=== PATIENT | female | born 1955 | race Caucasian/White ===

== ENCOUNTER 2018-05-11 22:15 | Observation (INO) ==
[2018-05-11 23:38] LABS: Baso % (Auto) 0.4 % (0.0-2.0); Eos # (Auto) 0.1 th/mm3 (0.0-0.4); Eos % (Auto) 1.3 % (0.0-4.0); Hematocrit 40.3 % (35.0-46.0); Hemoglobin 13.8 gm/dL (11.6-15.3); Lymph # (Auto) 3.4 th/mm3 (1.0-4.8); Lymph % (Auto) 51.4 % (9.0-44.0); Mean Corpuscular HGB Conc 34.2 % (32.0-36.0); Mean Corpuscular Hemoglobin 32.2 pg (27.0-34.0); Mean Corpuscular Volume 94.1 fL (80.0-100.0); Mean Platelet Volume 9.7 fL (7.0-11.0); Mono # (Auto) 0.8 th/mm3 (0.0-0.9); Mono % (Auto) 12.3 % (0.0-8.0); Neut # (Auto) 2.3 th/mm3 (1.8-7.7); Neut % (Auto) 34.6 % (16.0-70.0); Platelet Count 211 th/mm3 (150-450); Red Blood Count 4.29 mil/mm3 (4.00-5.30); Red Cell Distribution Width 12.2 % (11.6-17.2); White Blood Count 6.7 th/mm3 (4.0-11.0)
[2018-05-11 23:59] LABS: Alkaline Phosphatase 80 U/L (45-117); Total Protein 7.4 g/dL (6.4-8.2)
--- NOTE | 2018-05-11 23:59 | XR ---
EXAM DATE: 05/11/2018 11:34 PM EST AGE/SEX: 63 years / Female INDICATIONS: Shortness of breath with chest pain. CLINICAL DATA: This is the patient's initial encounter. Patient reports that signs and symptoms have been present for 1 day and indicates a pain score of 5/10. MEDICAL/SURGICAL HISTORY: Hypertension. None. COMPARISON: No prior exams available for comparison. FINDINGS: Portable AP view of the chest demonstrates a normal-sized cardiac silhouette. No effusion, consolidat ion, or pneumothorax is identified. The bones and soft tissues demonstrate no acute finding. EKG line s overlie the patient. CONCLUSION: No acute cardiopulmonary abnormality is identified. Electronically signed by: Nadeem Mcdaniel MD 05/11/2018 11:57 PM EST
[2018-05-12 00:04] LABS: Alanine Aminotransferase 109 U/L (10-53); Albumin 3.9 g/dL (3.4-5.0); Anion Gap 5 meq/L (5-15); Aspartate Aminotransferase 59 U/L (15-37); Blood Urea Nitrogen 18 mg/dL (7-18); Calcium 8.6 mg/dL (8.5-10.1); Carbon Dioxide 29.5 meq/L (21.0-32.0); Chloride 108 meq/L (98-107); Glomerular Filtration Rate 61 mL/min (>89); Glucose,Random 160 mg/dL (74-106); Potassium 3.9 meq/L (3.5-5.1); Sodium 142 meq/L (136-145)
[2018-05-12] MEDS ORDERED: Iohexol 350 MG/ML 100 ML Vial (for Cath Lab) IVCONTRAST ONE (01:07)
--- NOTE | 2018-05-12 01:31 | ED ---
HPI General Chief Complaint: Chest Pain Stated Complaint: Chest Pain/Resp complaint Time Seen by Provider: 05/11/18 22:50 Source: patient Limitations: no limitations History of Present Illness HPI narrative: 63-year-old female came to the emergency room with history of on and off shortness of breath for past 1 week. Today patient started to get chest pain which concerned her and she came to the emergency room to be evaluated. Patient describes the chest pain substernal radiating slightly to her left side of the chest. No aggravating or relieving symptoms identified. The pain is dull aching in quality. No other associated symptoms like diaphoresis, lightheadedness or syncopal episode. No history of coronary artery disease. Patient had a stress test a few years back that was negative. Vital signs were stable. Currently patient is chest pain-free. Related Data Home Medications Medication Instructions Recorded Confirmed aspirin 81 mg PO DAILY 05/11/18 05/11/18 levothyroxine 50 mcg PO DAILY 05/11/18 05/11/18 lisinopril 10 mg PO DAILY 05/11/18 05/11/18 temazepam 30 mg PO DAILY 05/11/18 05/11/18 Allergies Allergy/AdvReac Type Severity Reaction Status Date / Time acetaminophen Allergy Severe Vomiting Verified 05/11/18 22:26 oxycodone Allergy Severe Vomiting Verified 05/11/18 22:26 propoxyphene Allergy Severe Vomiting Verified 05/11/18 22:26 Sulfa (Sulfonamide Allergy Swelling Verified 05/11/18 22:26 Antibiotics) Review of Systems ROS: all other systems reviewed are negative [facility] Medical History Medical History HTN (hypertension) (Acute) Hx of hysterectomy (Acute) Thyroid disease (Acute) Surgical History Surgical History Hx of hand surgery (Acute) Hx of oral surgery (Acute) Social History Social History Substance History: No History of Abuse Second Hand Smoke Exposure: No Smoking Status: Former smoker How Often Do You Have a Drink Containing Alcohol: 2 to 3 times a week Recent Travel in [facility] within the Last 8 Weeks: No Recent Out of Country Travel within the Last 8 Weeks: No Immunization History Tetanus Immunization: Unsure Exam Narrative Exam Narrative: GENERAL: Awake, alert, mild distress SKIN: Focused skin assessment warm/dry. HEAD: Atraumatic. Normocephalic. EYES: Pupils equal and round. No scleral icterus. No injection or drainage. ENT: No nasal bleeding or discharge. Mucous membranes pink and moist. NECK: Trachea midline. No JVD. CARDIOVASCULAR: Regular rate and rhythm. No murmur appreciated. RESPIRATORY: No accessory muscle use. Clear to auscultation. Breath sounds equal bilaterally. GASTROINTESTINAL: Abdomen soft, non-tender, nondistended. Hepatic and splenic margins not palpable. MUSCULOSKELETAL: No obvious deformities. No clubbing. No cyanosis. No edema. NEUROLOGICAL: Awake and alert. No obvious cranial nerve deficits. Motor grossly within normal limits. Normal speech. PSYCHIATRIC: Appropriate mood and affect; insight and judgment normal. Course Initial Documented Vital Signs Temperature 98.1 F 05/11/18 22:24 Pulse Rate 62 05/11/18 22:24 Respiratory Rate 18 05/11/18 22:24 Blood Pressure 161/76 H 05/11/18 22:24 Pulse Oximetry 98 05/11/18 22:24 Last Documented Vital Signs Temperature 97.2 F L 05/13/18 08:00 Pulse Rate 68 05/13/18 08:00 Respiratory Rate 16 05/13/18 08:00 Blood Pressure 176/86 H 05/13/18 08:00 Pulse Oximetry 96 05/13/18 12:04 Medical Decision Making MDM Narrative Medical decision making narrative: 1 AM blood test results are back and within acceptable limits. Troponin and d-dimer is negative. Patient will be admitted to the chest pain center. Patient was told about the test results and the plan and she is acceptable. Medical Screen Exam Complete: Yes Emergency Medical Condition: Yes Lab Data Result diagrams: 05/11/18 23:15 05/11/18 23:15 Lab Results 05/11/18 05/11/18 05/11/18 Range/Units 23:15 23:15 23:57 WBC 6.7 (4.0-11.0) th/mm3 RBC 4.29 (4.00-5.30) mil/mm3 Hgb 13.8 (11.6-15.3) gm/dL Hct 40.3 (35.0-46.0) % MCV 94.1 (80.0-100.0) fL MCH 32.2 (27.0-34.0) pg MCHC 34.2 (32.0-36.0) % RDW 12.2 (11.6-17.2) % Plt Count 211 (150-450) th/mm3 MPV 9.7 (7.0-11.0) fL Neut % (Auto) 34.6 (16.0-70.0) % Lymph % (Auto) 51.4 H (9.0-44.0) % [place] % (Auto) 12.3 H (0.0-8.0) % Eos % (Auto) 1.3 (0.0-4.0) % Baso % (Auto) 0.4 (0.0-2.0) % Neut # (Auto) 2.3 (1.8-7.7) th/mm3 Lymph # (Auto) 3.4 (1.0-4.8) th/mm3 [place] # (Auto) 0.8 (0.0-0.9) th/mm3 Eos # (Auto) 0.1 (0.0-0.4) th/mm3 Baso # (Auto) 0.0 (0.0-0.2) th/mm3 WBC Differential . Differential Comment Auto diff final D-Dimer Quant (PE/DVT) 0.39 (0.00-0.50) mg/L FEU Sodium 142 (136-145) meq/L Potassium 3.9 (3.5-5.1) meq/L Chloride 108 H (98-107) meq/L Carbon Dioxide 29.5 (21.0-32.0) meq/L Anion Gap 5 (5-15) meq/L BUN 18 (7-18) mg/dL Creatinine 0.93 (0.50-1.00) mg/dL Estimated GFR 61 L (>89) mL/min Random Glucose 160 H (74-106) mg/dL Calcium 8.6 (8.5-10.1) mg/dL Total Bilirubin 0.5 (0.2-1.0) mg/dL AST 59 H (15-37) U/L ALT 109 H (10-53) U/L Alkaline Phosphatase 80 (45-117) U/L Total Creatine Kinase (26-192) U/L Troponin I Less than 0.02 L (0.02-0.05) ng/mL Total Protein 7.4 (6.4-8.2) g/dL Albumin 3.9 (3.4-5.0) g/dL 05/12/18 05/12/18 Range/Units 01:46 03:20 WBC (4.0-11.0) th/mm3 RBC (4.00-5.30) mil/mm3 Hgb (11.6-15.3) gm/dL Hct (35.0-46.0) % MCV (80.0-100.0) fL MCH (27.0-34.0) pg MCHC (32.0-36.0) % RDW (11.6-17.2) % Plt Count (150-450) th/mm3 MPV (7.0-11.0) fL Neut % (Auto) (16.0-70.0) % Lymph % (Auto) (9.0-44.0) % [place] % (Auto) (0.0-8.0) % Eos % (Auto) (0.0-4.0) % Baso % (Auto) (0.0-2.0) % Neut # (Auto) (1.8-7.7) th/mm3 Lymph # (Auto) (1.0-4.8) th/mm3 [place] # (Auto) (0.0-0.9) th/mm3 Eos # (Auto) (0.0-0.4) th/mm3 Baso # (Auto) (0.0-0.2) th/mm3 WBC Differential Differential Comment D-Dimer Quant (PE/DVT) (0.00-0.50) mg/L FEU Sodium (136-145) meq/L Potassium (3.5-5.1) meq/L Chloride (98-107) meq/L Carbon Dioxide (21.0-32.0) meq/L Anion Gap (5-15) meq/L BUN (7-18) mg/dL Creatinine (0.50-1.00) mg/dL Estimated GFR (>89) mL/min Random Glucose (74-106) mg/dL Calcium (8.5-10.1) mg/dL Total Bilirubin (0.2-1.0) mg/dL AST (15-37) U/L ALT (10-53) U/L Alkaline Phosphatase (45-117) U/L Total Creatine Kinase 66 57 (26-192) U/L Troponin I Less than 0.02 L Less than 0.02 L (0.02-0.05) ng/mL Total Protein (6.4-8.2) g/dL Albumin (3.4-5.0) g/dL Imaging Data Radiologist's impression: Chest X-Ray 05/11/18 23:06 CONCLUSION: No acute cardiopulmonary abnormality is identified. Myocardial Perfusion Scan Nuc Med 05/12/18 00:00 CONCLUSION: 1. Focal perfusion defect involving the cardiac apex at stress which demonstrates some reversibility at rest indicating LAD infarct with landry- infarct ischemia. Clinical correlation is recommended. ECG Data Attestation: I personally reviewed and interpreted this ECG as follows: Interpretation: Twelve-lead EKG was reviewed by me. Normal sinus rhythm, normal axis, nonspecific ST-T wave changes. Heart rate of 70 bpm. Discharge Plan Discharge Disposition Patient Disposition: 30 Still Patient Discharge Condition Condition: Stable Discharge Order Discharge Orders: Discharge Order (Routine); Ordered 05/13/18 Ordered By: Bj Donovan ED Use Only Admit Order (Routine); Ordered 05/12/18 Ordered By: Noreen Novoa Discharge Details Anticipated Discharge Date: 05/13/18 Physicians Team ED Provider: Noreen Novoa Attending Provider: Bj Donovan Other Providers: Bj Donovan ; Wing Graciela Caldwell Status ED Status: Left Department Discharge Information Discharge Date/Time: 05/12/18 02:30
[2018-05-12 03:07] LABS: Creatine Kinase 66 U/L (26-192)
[2018-05-12 04:49] LABS: Creatine Kinase 57 U/L (26-192)
--- NOTE | 2018-05-12 08:33 | P.HPCA ---
History of Present Illness Service: Chest pain center Primary Care Physician: Sheyla Cruz Chief Complaint: Dyspnea on exertion and chest pain History of Present Illness: Pleasant 63-year-old [email or web address] employee has noted some dyspnea on exertion over the last month or more. About a week ago she moved a mattress and some furniture and then subsequently began to notice some chest discomfort. This is difficult to describe but is somewhat of a dull ache or squeezing predominantly in the upper substernal area radiating more towards the left shoulder and lower left neck. When she feels this it is about a 5 out of 10 severity lasting for 30 seconds to a minute or so. There are no precipitating or relieving factors. She does note that it slightly pleuritic but has had no cough or other symptoms. She has a history of hypertension hypothyroid and has known elevated liver function tests followed by her primary care physician. She has no other significant complaints at this time. Review of Systems All other systems reviewed negative except as stated in HPI PMFSH - History History Provided By: Patient - Medical History Medical History: Medical History (Last Reviewed 05/12/18 @ 01:37 by Noreen Novoa MD) HTN (hypertension) Hx of hysterectomy Thyroid disease - Surgical History Surgical History: Surgical History (Last Reviewed 05/12/18 @ 01:37 by Noreen Novoa MD) Hx of hand surgery Hx of oral surgery - Tobacco History Second Hand Smoke Exposure: No Smoking Status: Former smoker - Alcohol History How Often Do You Have a Drink Containing Alcohol: 2 to 3 times a week - Substance Use History Substance History: No History of Abuse - Travel History Recent Travel in the [place] Within the Last 8 Weeks: No Recent Travel Out of the Country Within the Last 8 Weeks: No - Immunization History Tetanus Immunization: Unsure Medications and Allergies Active Medications: Active Medications Sodium Chloride (Ns Flush) 2 ml IV.FLUSH UNSCH PRN PRN Reason: FLUSH AFTER USING IV ACCESS Sodium Chloride (Ns Flush) 2 ml IV.FLUSH BID GARRY Sodium Chloride (Ns Flush) 2 ml IV.FLUSH PRN PRN PRN Reason: FLUSH AFTER USING IV ACCESS Allergies Allergy/AdvReac Type Severity Reaction Status Date / Time acetaminophen Allergy Severe Vomiting Verified 05/11/18 22:26 oxycodone Allergy Severe Vomiting Verified 05/11/18 22:26 propoxyphene Allergy Severe Vomiting Verified 05/11/18 22:26 Sulfa (Sulfonamide Allergy Swelling Verified 05/11/18 22:26 Antibiotics) Home Medications Medication Instructions Recorded Confirmed Type aspirin 81 mg PO DAILY 05/11/18 05/11/18 History levothyroxine 50 mcg PO DAILY 05/11/18 05/11/18 History lisinopril 10 mg PO DAILY 05/11/18 05/11/18 History temazepam 30 mg PO DAILY 05/11/18 05/11/18 History Exam Vital signs: Vital Signs 05/11/18 22:24 05/11/18 23:16 05/11/18 23:17 Temperature 98.1 F Pulse Rate 62 64 Respiratory Rate 18 Blood Pressure 161/76 H Pulse Oximetry 98 97 05/11/18 23:18 05/12/18 02:10 05/12/18 04:00 Temperature 98.1 F Pulse Rate 60 52 L 51 L Respiratory Rate 19 18 18 Blood Pressure 144/83 H 148/80 H 150/90 H Pulse Oximetry 98 100 98 05/12/18 08:12 Temperature 98.3 F Pulse Rate 98 H Respiratory Rate 18 Blood Pressure 159/92 H Pulse Oximetry 98 Intake & Output 05/11/18 05/12/18 05/12/18 18:59 06:59 18:59 Weight 165 kg Other: # Voids 2 Weight On Admission 74.843 kg Narrative: Well-nourished well-developed slightly obese lady in no acute distress resting comfortably Skin warm and dry Head normocephalic atraumatic hair normal distribution and texture Eyes PERRLA EOMI sclera clear Mouth mucous membranes moist and well papillated upper plate in place no lesions Neck supple no JVD masses nodes or bruits Chest clear to auscultation no rales wheezes or rhonchi and no significant tenderness noted Cardiovascular regular sinus rhythm no gallops rubs or murmurs Abdomen obese soft nontender no guarding or rebound no hepatosplenomegaly Extremities no clubbing cyanosis or edema pulses are intact Neurologic cranial nerves are intact upper and lower extremities demonstrate equal and strong strength Results 05/11/18 23:15 05/11/18 23:15 Cardiac Enzymes 05/11/18 05/12/18 05/12/18 Range/Units 23:15 01:46 03:20 AST 59 H (15-37) U/L Troponin I Less than 0.02 L Less than 0.02 L Less than 0.02 L (0.02-0.05) ng/mL CBC 05/11/18 Range/Units 23:15 WBC 6.7 (4.0-11.0) th/mm3 RBC 4.29 (4.00-5.30) mil/mm3 Hgb 13.8 (11.6-15.3) gm/dL Hct 40.3 (35.0-46.0) % Plt Count 211 (150-450) th/mm3 Neut # (Auto) 2.3 (1.8-7.7) th/mm3 Lymph # (Auto) 3.4 (1.0-4.8) th/mm3 [place] # (Auto) 0.8 (0.0-0.9) th/mm3 Eos # (Auto) 0.1 (0.0-0.4) th/mm3 Baso # (Auto) 0.0 (0.0-0.2) th/mm3 Comprehensive Metabolic Panel 05/11/18 Range/Units 23:15 Sodium 142 (136-145) meq/L Potassium 3.9 (3.5-5.1) meq/L Chloride 108 H (98-107) meq/L Carbon Dioxide 29.5 (21.0-32.0) meq/L BUN 18 (7-18) mg/dL Creatinine 0.93 (0.50-1.00) mg/dL Calcium 8.6 (8.5-10.1) mg/dL AST 59 H (15-37) U/L ALT 109 H (10-53) U/L Alkaline Phosphatase 80 (45-117) U/L Total Protein 7.4 (6.4-8.2) g/dL Albumin 3.9 (3.4-5.0) g/dL Intake and Output 05/11/18 05/12/18 05/12/18 22:59 06:59 14:59 Other: # Voids 2 Weight 74.843 kg 165 kg Weight On Admission 74.843 kg - Imaging and Cardiology Imaging: Impressions Chest X-Ray 05/11/18 23:06 CONCLUSION: No acute cardiopulmonary abnormality is identified. EKG interpretations - EKG EKG results cardiology: WNL Caprini VTE Risk Assessment Caprini VTE Risk Assessment: No/Low Risk (score <= 1) Caprini Risk Assessment Model: Point Value = 1 Point Value = 2 Point Value = 3 Point Value = 5 Age 41-60 Minor surgery BMI > 25 kg/m2 Swollen legs Varicose veins or History of unexplained or recurrent spontaneous Oral contraceptives or hormone replacement Sepsis (< 1 month) Serious lung disease, including pneumonia (< 1 month) Abnormal pulmonary function Acute myocardial infarction Congestive heart failure (< 1 month) History of inflammatory bowel disease Medical patient at bed rest Age 61-74 Arthroscopic surgery Major open surgery (> 45 min) Laparoscopic surgery (> 45 min) Malignancy Confined to bed (> 72 hours) Immobilizing plaster cast Central venous access Age >= 75 History of VTE Family history of VTE Factor V Leiden Prothrombin [id number] Lupus anticoagulant Anticardiolipin antibodies Elevated serum homocysteine Heparin-induced thrombocytopenia Other congenital or acquired thrombophilia Stroke (< 1 month) Elective arthroplasty Hip, pelvis, or leg fracture Acute spinal cord injury (< 1 month) Prophylaxis Regimen: Total Risk Factor Score Risk Level Prophylaxis Regimen 0-1 Low Early ambulation 2 Moderate Order ONE of the following: *Sequential Compression Device (SCD) *Heparin 5000 units SQ BID 3-4 Higher Order ONE of the following medications: *Heparin 5000 units SQ TID *Enoxaparin/Lovenox 40 mg SQ daily (WT < 150 kg, CrCl > 30 mL/min) *Enoxaparin/Lovenox 30 mg SQ daily (WT < 150 kg, CrCl > 10-29 mL/min) *Enoxaparin/Lovenox 30 mg SQ BID (WT < 150 kg, CrCl > 30 mL/min) AND/OR *Sequential Compression Device (SCD) 5 or more Highest Order ONE of the following medications: *Heparin 5000 units SQ TID (Preferred with Epidurals) *Enoxaparin/Lovenox 40 mg SQ daily (WT < 150 kg, CrCl > 30 mL/min) *Enoxaparin/Lovenox 30 mg SQ daily (WT < 150 kg, CrCl > 10-29 mL/min) *Enoxaparin/Lovenox 30 mg SQ BID (WT < 150 kg, CrCl > 30 mL/min) AND *Sequential Compression Device (SCD) Assessment and Plan - Plan This patient has an atypical presentation of chest pain which seemed to have been precipitated by moving a mattress and some furniture. However she demonstrates no focal tenderness and does have the family history of heart disease along with risk factors of hypertension hyperlipidemia. She had a negative stress test about 2 years ago but a repeat at this time would be appropriate. H&P: Quality - VTE Deep Vein Thrombosis/Pulmonary Embolism Present on Admission: No
--- NOTE | 2018-05-12 11:18 | ECG ---
Date Performed: 05/12/2018 Time Performed: 04:21:39 PTAGE: 63 years EKG: SINUS BRADYCARDIA BORDERLINE ECG No change PREVIOUS TRACING : 05/12/2018 02.13 DOCTOR: Js Logan Interpretating Date/Time 05/12/2018 11:16:24
--- NOTE | 2018-05-12 11:19 | ECG ---
Date Performed: 05/12/2018 Time Performed: 02:13:02 PTAGE: 63 years EKG: SINUS BRADYCARDIA BORDERLINE ECG PREVIOUS TRACING : 05/11/2018 22.37 DOCTOR: Js Logan Interpretating Date/Time 05/12/2018 11:17:31
--- NOTE | 2018-05-12 11:20 | ECG ---
Date Performed: 05/11/2018 Time Performed: 22:37:36 PTAGE: 63 years EKG: Sinus rhythm NORMAL ECG NO PREVIOUS TRACING DOCTOR: Js Logan Interpretating Date/Time 05/12/2018 11:18:39
--- NOTE | 2018-05-12 11:23 | TR ---
Date Performed: 05/12/2018 Time Performed: 09:45:52 DOCTOR: Js Logan DRUG LIST: CLINICAL HISTORY: CHEST PAIN REASON FOR TEST: Chest pain REASON FOR ENDING: OBSERVATION: CONCLUSION: Jimmy protocol completed. Stopped sec to developing chest pain and dyspnea, horizion al st inferior and laterally. Chest pain resolved within 2 minutes into recovery. Recovery otherwise unremarkable. Maximum ST=989 Target HR Achieved=78.0% Total Exercise Time=4:11 Maximum UH=649/84. COMMENTS: Patient developed ST depression suggestive of ischemia and associated with chest pain in recovery. Further evaluation with nuclear scanning recommended
[2018-05-12] MEDS ORDERED: Regadenoson Inj 0.4 MG/5 ML Syringe IV.PUSH ONE (12:42)
--- NOTE | 2018-05-12 14:30 | NM ---
EXAM DATE: 05/12/2018 2:23 PM EST AGE/SEX: 63 years / Female INDICATIONS:Angina. . Dyspnea on exertion and chest discomfort. CLINICAL DATA: This is the patient's initial encounter. Patient reports that signs and symptoms have been present for 1 day and indicates a pain score of 2/10. MEDICAL/SURGICAL HISTORY: Hypertension. Hysterectomy. COMPARISON: No prior exams available for comparison. DOSE: 11.1 mCi Tc 99m Myoview at rest 35.1 mCi [id number] at stress 0.4 mg Lexiscan STRESS SYMPTOMS: Headache. EJECTION FRACTION: 65 % TECHNIQUE: The patient underwent pharmacologic stress with infusion of prescribed dose. Continuous ECG tracing was monitored during stress. Gated SPECT imaging was performed after stress and conventi onal SPECT imaging was performed at rest. The examination was performed on a SPECT/CT scanner, both attenuation and non-corrected datasets were reviewed. FINDINGS: The gated cine loop images demonstrate no focal wall motion and relatively. The left ventricular ejec tion fraction is calculated at 65%. The cardiac SPECT stress and rest images demonstrate focal perfus ion defect involving the cardiac apex at stress which demonstrates some reversibility at rest indicat ing LAD infarct with landry-infarct ischemia. Clinical correlation is recommended. RISK CATEGORY: Low (<1% Annual Motality Rate) CONCLUSION: 1. Focal perfusion defect involving the cardiac apex at stress which demonstrates some reversibility at rest indicating LAD infarct with landry-infarct ischemia. Clinical correlation is recommended. Electronically signed by: Khalif Young MD 05/12/2018 2:28 PM EST
[2018-05-12] MEDS: Levothyroxine 50 MCG Tablet PO SCH (16:08)
[2018-05-12] MEDS: Lisinopril 10 MG Tablet PO SCH (16:08)
--- NOTE | 2018-05-12 17:20 | P.CONCA ---
History of Present Illness Service: cardiology Consult date: 05/12/18 Requesting Physician: Js Logan Reason for Consult: abnormal stress test Primary Care Provider: Sheyla Cruz Chief Complaint: Dyspnea on exertion and chest pain History of Present Illness: Primary Care Physician: Sheyla Cruz Chief Complaint: Dyspnea on exertion and chest pain History of Present Illness: Pleasant 63-year-old [employer] employee, was [facility] because of chest pain and shortness of breath. About a week ago, she developed substernal chest discomfort radiated to left shoulder and left lower neck after moved some furniture. She also noticed exertional short of breath over the last 1 month. She decided come the hospital for evaluation. During the workup in the [facility], she underwent stress test. She developed short of breath, followed by chest pain, as well as some mild ST changes during stress test which led to termination of stress test. Nuclear imaging showed some apical reversible ischemia. For that reason Cardiology was consulted. Currently, she had no chest pain at rest. EKG showed no acute ischemic changes. troponin negative. She reports no prior history of similar in the past. She is nonsmoker. She does have family history of premature CAD. She being treated for hypertension, hypothyroidism. She also showed known to have elevated liver function test by her primary care physician. Review of Systems All other systems reviewed negative except as stated in HPI PMFSH - History History Provided By: Patient - Medical History Medical History: Medical History (Last Reviewed 05/12/18 @ 01:37 by Noreen Novoa MD) HTN (hypertension) Hx of hysterectomy Thyroid disease - Surgical History Surgical History: Surgical History (Last Reviewed 05/12/18 @ 01:37 by Noreen Novoa MD) Hx of hand surgery Hx of oral surgery - Tobacco History Second Hand Smoke Exposure: No Smoking Status: Former smoker - Alcohol History How Often Do You Have a Drink Containing Alcohol: 2 to 3 times a week - Substance Use History Substance History: No History of Abuse - Travel History Recent Travel in the [place] Within the Last 8 Weeks: No Recent Travel Out of the Country Within the Last 8 Weeks: No - Immunization History Tetanus Immunization: Unsure Medications and Allergies Active Medications: Active Medications Levothyroxine Sodium (Synthroid) 50 mcg PO DAILY@0600 [facility] Last Admin: 05/12/18 16:08 Dose: 50 mcg Lisinopril (Prinivil) 10 mg PO DAILY [facility] Last Admin: 05/12/18 16:08 Dose: 10 mg Sodium Chloride (Ns Flush) 2 ml IV.FLUSH UNSCH PRN PRN Reason: FLUSH AFTER USING IV ACCESS Sodium Chloride (Ns Flush) 2 ml IV.FLUSH BID [facility] Last Admin: 05/12/18 13:49 Dose: 2 ml Sodium Chloride (Ns Flush) 2 ml IV.FLUSH PRN PRN PRN Reason: FLUSH AFTER USING IV ACCESS Allergies Allergy/AdvReac Type Severity Reaction Status Date / Time acetaminophen Allergy Severe Vomiting Verified 05/11/18 22:26 oxycodone Allergy Severe Vomiting Verified 05/11/18 22:26 propoxyphene Allergy Severe Vomiting Verified 05/11/18 22:26 Sulfa (Sulfonamide Allergy Swelling Verified 05/11/18 22:26 Antibiotics) Home Medications Medication Instructions Recorded Confirmed Type aspirin 81 mg PO DAILY 05/11/18 05/11/18 History levothyroxine 50 mcg PO DAILY 05/11/18 05/11/18 History lisinopril 10 mg PO DAILY 05/11/18 05/11/18 History temazepam 30 mg PO DAILY 05/11/18 05/11/18 History Exam Vital signs: Vital Signs 05/11/18 22:24 05/11/18 23:16 05/11/18 23:17 Temperature 98.1 F Pulse Rate 62 64 Respiratory Rate 18 Blood Pressure 161/76 H Pulse Oximetry 98 97 05/11/18 23:18 05/12/18 02:10 05/12/18 04:00 Temperature 98.1 F Pulse Rate 60 52 L 51 L Respiratory Rate 19 18 18 Blood Pressure 144/83 H 148/80 H 150/90 H Pulse Oximetry 98 100 98 05/12/18 08:00 05/12/18 08:12 05/12/18 16:00 Temperature 98.3 F 98.3 F Pulse Rate 51 L 98 H 59 L Respiratory Rate 18 18 Blood Pressure 159/92 H 141/68 H Pulse Oximetry 98 98 Intake & Output 05/11/18 05/12/18 05/12/18 18:59 06:59 18:59 Weight 165 kg Other: # Voids 2 Weight On Admission 74.843 kg - Constitutional no acute distress - Routine HEENT Exam Head: Present: normocephalic, atraumatic ENT: Present: mucous membranes moist - Routine Neck Exam Present: supple, full ROM, normal carotid upstroke. Absent: JVD, carotid bruit - Routine Respiratory Exam Present: CTA bilaterally - Routine Cardiovascular Exam Present: RRR, S1, S2. Absent: murmur, gallop, rubs - Routine Abdominal Exam Present: soft, normoactive bowel sounds - Routine Extremities Exam Present: full ROM, normal capillary refill. Absent: edema - Routine Skin Exam Present: intact, dry, warm - Routine Neurological Exam Present: alert, oriented X3, CN II-XII intact Results 05/11/18 23:15 05/11/18 23:15 Cardiac Enzymes 05/11/18 05/12/18 05/12/18 Range/Units 23:15 01:46 03:20 AST 59 H (15-37) U/L Troponin I Less than 0.02 L Less than 0.02 L Less than 0.02 L (0.02-0.05) ng/mL CBC 05/11/18 Range/Units 23:15 WBC 6.7 (4.0-11.0) th/mm3 RBC 4.29 (4.00-5.30) mil/mm3 Hgb 13.8 (11.6-15.3) gm/dL Hct 40.3 (35.0-46.0) % Plt Count 211 (150-450) th/mm3 Neut # (Auto) 2.3 (1.8-7.7) th/mm3 Lymph # (Auto) 3.4 (1.0-4.8) th/mm3 [place] # (Auto) 0.8 (0.0-0.9) th/mm3 Eos # (Auto) 0.1 (0.0-0.4) th/mm3 Baso # (Auto) 0.0 (0.0-0.2) th/mm3 Comprehensive Metabolic Panel 05/11/18 Range/Units 23:15 Sodium 142 (136-145) meq/L Potassium 3.9 (3.5-5.1) meq/L Chloride 108 H (98-107) meq/L Carbon Dioxide 29.5 (21.0-32.0) meq/L BUN 18 (7-18) mg/dL Creatinine 0.93 (0.50-1.00) mg/dL Calcium 8.6 (8.5-10.1) mg/dL AST 59 H (15-37) U/L ALT 109 H (10-53) U/L Alkaline Phosphatase 80 (45-117) U/L Total Protein 7.4 (6.4-8.2) g/dL Albumin 3.9 (3.4-5.0) g/dL Intake and Output 05/12/18 05/12/18 05/12/18 06:59 14:59 22:59 Other: # Voids 2 Weight 165 kg Weight On Admission 74.843 kg - Imaging and Cardiology Imaging: Impressions Chest X-Ray 05/11/18 23:06 CONCLUSION: No acute cardiopulmonary abnormality is identified. Myocardial Perfusion Scan Nuc Med 05/12/18 00:00 CONCLUSION: 1. Focal perfusion defect involving the cardiac apex at stress which demonstrates some reversibility at rest indicating LAD infarct with landry- infarct ischemia. Clinical correlation is recommended. Assessment and Plan - Assessment (1) Angina pectoris Code(s): I20.9 - Angina pectoris, unspecified Status: Acute (2) Abnormal nuclear stress test Code(s): R94.39 - Abnormal result of other cardiovascular function study Status: Acute - Plan 1. Stable angina. Abnormal stress test. Moderate risk for CAD. After lengthy discussion with patient and her daughter, discussed indication for coronary angiogram and possible intervention. Patient preferred to proceed. Will keep NPO after midnight. CP cardiology will resume the care of this patient tomorrow.
[2018-05-12 19:40] VITALS: RESP 16
[2018-05-13] MEDS: Levothyroxine 50 MCG Tablet PO SCH (05:07)
--- NOTE | 2018-05-13 07:50 | P.PNCA ---
Subjective Interval history: No chest pain or shortness of breath overnight. Reports PCP has done workup on elevated LFTs, has been told she has fatty liver, does drink 12 beers most days. If given the choice between left heart catheter medical management, she would prefer medical management. Telemetry with sinus bradycardia 50s at rest and 40s while sleeping. Medications and Allergies Active Medications: Active Medications Aspirin (Ecotrin) 81 mg PO DAILY [facility] Levothyroxine Sodium (Synthroid) 50 mcg PO DAILY@0600 [facility] Last Admin: 05/13/18 05:07 Dose: 50 mcg Lisinopril (Prinivil) 10 mg PO DAILY [facility] Last Admin: 05/12/18 16:08 Dose: 10 mg Sodium Chloride (Ns Flush) 2 ml IV.FLUSH UNSCH PRN PRN Reason: FLUSH AFTER USING IV ACCESS Sodium Chloride (Ns Flush) 2 ml IV.FLUSH BID [facility] Last Admin: 05/12/18 20:06 Dose: 2 ml Sodium Chloride (Ns Flush) 2 ml IV.FLUSH PRN PRN PRN Reason: FLUSH AFTER USING IV ACCESS Allergies Allergy/AdvReac Type Severity Reaction Status Date / Time acetaminophen Allergy Severe Vomiting Verified 05/11/18 22:26 oxycodone Allergy Severe Vomiting Verified 05/11/18 22:26 propoxyphene Allergy Severe Vomiting Verified 05/11/18 22:26 Sulfa (Sulfonamide Allergy Swelling Verified 05/11/18 22:26 Antibiotics) Home Medications Medication Instructions Recorded Confirmed Type aspirin 81 mg PO DAILY 05/11/18 05/11/18 History levothyroxine 50 mcg PO DAILY 05/11/18 05/11/18 History lisinopril 10 mg PO DAILY 05/11/18 05/11/18 History temazepam 30 mg PO DAILY 05/11/18 05/11/18 History Physical Exam Vital signs: Vital Signs 05/12/18 08:00 05/12/18 08:12 05/12/18 16:00 Temperature 98.3 F 98.3 F Pulse Rate 51 L 98 H 59 L Respiratory Rate 18 18 Blood Pressure 159/92 H 141/68 H Pulse Oximetry 98 98 05/12/18 19:39 05/12/18 20:00 05/13/18 00:00 Temperature 98.6 F 97.6 F Pulse Rate 57 L 56 L 53 L Respiratory Rate 16 16 Blood Pressure 141/73 H 158/77 H Pulse Oximetry 96 97 97 05/13/18 04:00 Temperature 97.6 F Pulse Rate 53 L Respiratory Rate 16 Blood Pressure 155/77 H Pulse Oximetry 98 Intake & Output 05/12/18 05/13/18 05/13/18 18:59 06:59 18:59 Other: # Voids 5 3 # Bowel Movements 1 Narrative: GENERAL: Well-developed well-nourished. Obese. In no acute distress. NECK: No carotid bruits. No JVD. CARDIOVASCULAR: Regular rate and rhythm. No murmur appreciated. RESPIRATORY: No accessory muscle use. Clear to auscultation. Breath sounds equal bilaterally. MUSCULOSKELETAL: No clubbing or cyanosis. No edema. NEUROLOGICAL: Awake and alert. Normal speech. Results 05/11/18 23:15 05/11/18 23:15 Cardiac Enzymes 05/11/18 05/12/18 05/12/18 Range/Units 23:15 01:46 03:20 AST 59 H (15-37) U/L Troponin I Less than 0.02 L Less than 0.02 L Less than 0.02 L (0.02-0.05) ng/mL CBC 05/11/18 Range/Units 23:15 WBC 6.7 (4.0-11.0) th/mm3 RBC 4.29 (4.00-5.30) mil/mm3 Hgb 13.8 (11.6-15.3) gm/dL Hct 40.3 (35.0-46.0) % Plt Count 211 (150-450) th/mm3 Neut # (Auto) 2.3 (1.8-7.7) th/mm3 Lymph # (Auto) 3.4 (1.0-4.8) th/mm3 [place] # (Auto) 0.8 (0.0-0.9) th/mm3 Eos # (Auto) 0.1 (0.0-0.4) th/mm3 Baso # (Auto) 0.0 (0.0-0.2) th/mm3 Comprehensive Metabolic Panel 05/11/18 Range/Units 23:15 Sodium 142 (136-145) meq/L Potassium 3.9 (3.5-5.1) meq/L Chloride 108 H (98-107) meq/L Carbon Dioxide 29.5 (21.0-32.0) meq/L BUN 18 (7-18) mg/dL Creatinine 0.93 (0.50-1.00) mg/dL Calcium 8.6 (8.5-10.1) mg/dL AST 59 H (15-37) U/L ALT 109 H (10-53) U/L Alkaline Phosphatase 80 (45-117) U/L Total Protein 7.4 (6.4-8.2) g/dL Albumin 3.9 (3.4-5.0) g/dL Intake and Output 05/12/18 05/13/18 05/13/18 22:59 06:59 14:59 Other: # Voids 5 3 # Bowel Movements 1 - Imaging and Cardiology Imaging: Impressions Chest X-Ray 05/11/18 23:06 CONCLUSION: No acute cardiopulmonary abnormality is identified. Myocardial Perfusion Scan Nuc Med 05/12/18 00:00 CONCLUSION: 1. Focal perfusion defect involving the cardiac apex at stress which demonstrates some reversibility at rest indicating LAD infarct with landry- infarct ischemia. Clinical correlation is recommended. Assessment and Plan - Plan 63-year-old female with HTN, hypothyroidism, transaminitis who presented for chest pain. Initial cardiac enzymes and EKGs were negative for ischemia. Nuclear stress test was performed which suggested apical infarct pattern with landry-infarct ischemia, low risk study. Chest pain with abnormal stress test: Symptoms concerning for unstable angina, n.p.o. for [facility] today. Aspirin 81 mg daily. Beta-alda contraindicated with resting bradycardia. Unclear transaminitis from fatty liver disease vs alcohol use, statin relatively contraindicated. Add Imdur 30 mg and amlodipine 5 mg for comanagement angina and hypertension. Discussed Condition With: Patient, Dr. Kang, Dr. Batista
[2018-05-13] MEDS ORDERED: Isosorbide Mononitrate 30 MG ER 24HR Tablet (Imdur) PO SCH (08:45)
[2018-05-13 08:48] VITALS: BP 176/86; TEMP 97.2
[2018-05-13] MEDS ORDERED: amLODIPine 5 MG Tablet PO SCH (09:00)
[2018-05-13] MEDS: Lisinopril 10 MG Tablet PO SCH (09:19)
[2018-05-13 09:58] VITALS: PULSE 68
[2018-05-13] MEDS ORDERED: Heparin/NS PF Inj 1,500 ML ONE (11:04)
[2018-05-13] MEDS ORDERED: Heparin 10,000 UNITS/10 ML Vial (for IV use) ONE (11:04)
[2018-05-13] MEDS ORDERED: Lidocaine PF 1% Inj 30 ML Vial ONE (11:04)
[2018-05-13] MEDS ORDERED: fentaNYL Citrate Inj 100 MCG/2 ML Ampul ONE (11:13)
[2018-05-13] MEDS ORDERED: Nitroglycerin SL 400 MCG/ACT 4.9 GM Spray Bottle SL ONE (11:36)
[2018-05-13] MEDS ORDERED: Sodium Chlor 0.9% Inj 250 ML IV.SIG ONE (11:56)
[2018-05-13] MEDS ORDERED: Atropine Inj 1 MG/ML Vial IV.PUSH PRN (11:56)
--- NOTE | 2018-05-13 11:56 | CATHPROC ---
[employer] HIS Report Study Information Study Number Admission Scheduled Start Study Start [id number] May 12 2018 1:06AM 05/13/2018 May 13 2018 10:29AM [place] Service Cardiac Catheterization Admit Source Facility Department Emergency department [facility] - Grappler Physician and Clinical Staff Initial Jorden Rodriguez Cellophane Worker Harvinder De La Garza,RN Recorder Erin Brown ,RT(R) Scrub Marcy Ortez,RT(R) Procedures Performed Procedure Location (Site) Vessel Name Coronary Angiograms LCA Left Coronary Coronary Angiograms RCA Right Coronary Drug Eluting Inflatio LAD Prox Left Coronary L Heart Cath PTCA LAD Prox Left Coronary Wire insertion Radial (right) Radial Art. Equipment Time Clinical Nursing Assistant Description Size Mfg Part Number Used/Scraped COPILOT VALVE, BLEEDBACK [id number] 11:28 [employer] Used CONTROL *[id number] TRANSDUCER, TRUWAVE [id number] 10:30 [employer] MONK * Used W/STOCKCOCK *[id number] 534-518T *[id number] 534-523T *[id number] -062- *[id number] -062-00 *[id number] 10:30 [employer] BLANKET,WARM AIR CCL * Used *[id number] 10:30 [employer] PACK, CCL CUSTOM * Used *[id number] 10:30 [employer] SUPPORT, ARTERIAL ADULT 47945 *[id number] Used [id number] 11:30 [employer] BALLOON, 2.5 X 20MM EUPHORA 20MM Used *[id number] 11:36 [employer] STENT, 3.0 22MM ELISA 3.0 22MM Used *[id number] 11:27 Guroo 30 BUSHRA INDEFLATOR Used *[id number] BAND, RADIAL COMPRESSION TR [id number] 11:44 [employer] 24CM Used SHORT 24 *[id number] SHEATH, FR6 RADIAL PRELUDE 10:30 [employer] FR 6 [id number] Used EASE 11CM [id number] 10:30 [employer] WIRE, EXCHANGE 260CM 3MMJ 260CM Used *[id number] 10:30 NAMIC MANIFOLD, 4 PORT * Used *[id number] 10:30 [employer]COMED OMNIPAQUE, 350 MG, 150ML 150ML [id number] Used WIRE, RUNTHROUGH NS FLOPPY [id number] 11:31 [employer] Systems 180CM Used .014 180CM *[id number] Equipment Model, Serial, Lot Number and Expiration Data Description Model Number Serial Number Lot Number Expiration Date STENT, 3.0 22MM ELISA [id number] 10-18-2019 History: Current Medications Medication Dosage/Unit Route Frequency Last Date/Time Taken NORVASC ASA Imdur Synthroid LISINOPRIL History: Allergies Allergy Reaction Darvocet-N 100 Percocet oxycodone Vomiting propoxyphene Vomiting acetaminophen Vomiting Sulfa (Sulfonamide Antibiotics) Swelling History: Risk Factors Family History of Hypertension Dyslipidemia Previous LA Previous Heart Failure Premature CAD Yes Yes Yes No No Prior Valve Prior PCI Prior CABG Surgery No No No Cerebrovascular Peripheral Artery Chronic Lung On Dialysis Diabetes Disease Disease Disease No No No No No History: Symptoms/Diagnosis Selection Items SOB History: Stress Tests Stress or Imaging Studies Performed Yes Stress Test SPECT Stress Test SPECT Result Yes Positive History: Other Current Smoker No Labs Hgb (g/dl) Hct (%) RBC (MIL/MM3) WBC (l/cumm) Platelets (thousands) 11.60-17.00 35.00-51.00 4.00-5.90 4.00-11.00 150.00-450.00 13.8 40.3 4.2 6.7 211 Glucose (mg/dl) BUN (mg/dl) Creatinine (mg/dl) BUN:Creatinine (1:x) 74.00-106.00 7.00-18.00 0.50-1.30 10.00-20.00 160 18 0.9 20 Na (meq/l) K (meq/l) Ca (mg/dl) 136.00-145.00 3.50-5.10 8.50-10.10 142 3.9 8.6 Troponin I (ng/ml) CPK-MB (ng/ML) 0.02-0.05 0.50-3.60 0.02 Not Drawn Medication Medication Total Dose (Bolus/Oral) Medication Total Dosage/Unit 1% XYLOCAINE 10 mL ANGIOMAX BOLUS 11 mL NITROGLYCERIN S/L 0.8 mg NTG (IC) 100 mcg PLAVIX 600 mg RADIAL COCKTAIL 5 mL (Bolus) VERSED 4 mg Medications (Bolus/Oral) Medication Time Given Dosage/Unit Administered By Reason VERSED 05/13/2018 11:16:31 AM 2 mg Holli, Harvinder 2 mg VERSED given in lab by Harvinder De La Garza RN in Right Antecubital via Peripheral IV. Ordered by Jorden Batista. 1% XYLOCAINE 05/13/2018 11:19:55 AM 10 mL Jorden Batista 10 mL 1% XYLOCAINE given in lab by Jorden Batista via Subcutaneous. Ordered by Jorden Batista. Ntg 200mcg Verapamil 2.5mg Heparin RADIAL COCKTAIL 05/13/2018 11:21:04 AM 5 mL (Bolus) Jorden Batista 2000U 5 mL (Bolus) RADIAL COCKTAIL given in lab by Jorden Batista via Radial. Using [Solution Name]. Ordere d by Jorden Batista. Reason: Ntg 200mcg ANGIOMAX BOLUS 05/13/2018 11:30:38 AM 11 mL Holli, Harvinder 11 mL ANGIOMAX BOLUS given in lab by Harvinder De La Garza RN via Peripheral IV. Ordered by Jorden Batista. VERSED 05/13/2018 11:35:22 AM 2 mg Holli, Harvinder 2 mg VERSED given in lab by Harvinder De La Garza RN via Peripheral IV. Ordered by Jorden Batista. NITROGLYCERIN S/L 05/13/2018 11:37:31 AM 0.4 mg Holli, Harvinder 0.4 mg NITROGLYCERIN S/L given in lab by Harvinder De La Garza RN via Sublingual. Ordered by Jorden Batista. NTG (IC) 05/13/2018 11:38:39 AM 100 mcg Jorden Batista 100 mcg NTG (IC) given in lab by Jorden Batista via Intra-coronary. Ordered by Jorden Batista. NITROGLYCERIN S/L 05/13/2018 11:42:51 AM 0.4 mg Holli, Harvinder 0.4 mg NITROGLYCERIN S/L given in lab by Harvinder De La Garza RN via Sublingual. Ordered by Jorden Batista. PLAVIX 05/13/2018 11:47:28 AM 600 mg Holli, Harvinder 600 mg PLAVIX given in lab by Harvinder De La Garza RN via Oral. Ordered by Jorden Batista. Medication (Drip) Medication Time Given Dosage/Unit Concentration/Unit Diluent (ml) Solution ANGIOMAX DRIP 05/13/2018 11:33:02 AM 26 mL/hr mL 26 mL/hr ANGIOMAX DRIP given in lab by Harvinder De La Garza RN via Peripheral IV. Pump/Drip Flow = 0 ml/hr u sing [Solution Name]. Ordered by Jorden Batista. IV Solutions 05/13/2018 10:58:17 AM 50 mL (IV) NaCl .9 Patient arrived on IV Solutions via Peripheral IV. Pump/Drip Flow using NaCl .9. Initial Case Assessment Cardiovascular HR Rhythm NIBP Chest Pain 68 reg 137/74 0 Edema Present Skin color Skin None Normal Warm Dry Circulatory - Right Pulses Dorsalis Pedis Femoral Radial 3 3 3 Scale (0,1,2,3,4,d) Circulatory - Left Pulses Dorsalis Pedis Femoral Radial 3 3 Scale (0,1,2,3,4,d) Neurological State Oriented to time-place- Alert Moves all extremities person Respiration - General Respiration Rate SpO2 (%) (B/min) 13 97 Final Case Assessment Cardiovascular HR Rhythm NIBP Chest Pain 68 reg 131/66 0 Edema Present Skin color Skin None Normal Warm Dry Circulatory - Right Pulses Dorsalis Pedis Femoral Radial 3 3 3 Scale (0,1,2,3,4,d) Circulatory - Left Pulses Dorsalis Pedis Femoral Radial 3 3 Scale (0,1,2,3,4,d) Neurological State Oriented to time-place- Alert Moves all extremities person Respiration - General Respiration Rate SpO2 (%) (B/min) 14 97 Chronological Log Time Study Chronological Log 10:57:53 Patient arrived via Bed. 10:57:53 Patient Name, D.O.B, / Armband Verified By R.N. 10:57:55 Consent signed by the physician and the patient and verified by the Grappler staff. 10:57:56 Pre-op and post- op instructions given; patient acknowledges understanding of instructions. 10:57:58 Verbal Stimulation=2 Physical Stimulation=2 Airway=2 Respiration=2 TOTAL=8. (0=absent, 1=li mited, 2=present) 10:58:04 Allens test performed on the right radial and ulnar artery. 10:58:08 Patient has been NPO for More than 6Hrs. 10:58:09 Skin Breakdown-none per pt 10:58:10 Patient Warmer Placed on the Table. 10:58:12 Han Prominences Protected 10:58:14 A # 20 IV was noted in the Antecubital (right). Grade = 0 10:58:17 Patient arrived on IV Solutions via Peripheral IV. Pump/Drip Flow using NaCl .9. 10:58:20 History and physical on the chart or being dictated. Vitals capture started with the following parameters, Patient=Adult, Interval=5 min, Initial Pr pxsxwb=827 mmHg, 10:59:18 Deflation Rate=5 mmHg, Cuff placed on Left Arm 11:00:06 HR=64 bpm, VEQC=312/74 mmhg, SpO2=95.0 %, Resp=24 B/min, Pain=0, Tanisha=10, Sierra=2 Assessment: Initial Case, HR=68 BPM, Rhythm=reg, GAFP=690/74 mmhg, Chest Pain=0, Edema=None, [place]=Normal, Skin = Warm, Dry Right Pulses: Ronal Ped=3, Femoral=3, Radial=3 11:00:50 Left Pulses: Ronal Ped=3, Femoral=3 Neurological: State=Alert, Ox3, ARCE Respiration: Resp=13 B/min, SpO2=97 % 11:04:59 HR=64 bpm, SNMB=702/69 mmhg, SpO2=94.0 %, Resp=11 B/min, Pain=0, Tanisha=10, Sierra=2 11:05:15 Reference ECG taken 11:06:36 Right Radial and groin prepped with 2% chlorhexidine, and draped after a 3 min. waiting alpesh e. 11:09:56 HR=64 bpm, RZSE=389/77 mmhg, SpO2=97.0 %, Resp=27 B/min, Pain=0, Tanisha=10, Sierra=2 11:13:08 MD paged 11:14:54 MD arrived. 11:14:57 HR=62 bpm, BHCY=407/76 mmhg, SpO2=98.0 %, Resp=17 B/min, Pain=0, Tanisha=10, Sierra=2 11:16:31 2 mg VERSED given in lab by Harvinder De La Garza, RN in Right Antecubital via Peripheral IV. Ordere d by Jorden Batista. 11:18:15 Pressure channel 1 zeroed. Time Out. Correct patient, correct procedure, correct physician, labs, allergies, and equipment verified with director of cardiac cath lab 11:18:51 team present. Fire risk assesment completed (see hard stop sheet for coding). Time Out Conc urred by MD and individual staff in procedure. 11:19:52 Case Start 11:19:55 10 mL 1% XYLOCAINE given in lab by Jorden Batista via Subcutaneous. Ordered by Agnieszka Batista en. 11:19:58 HR=66 bpm, DEVK=219/72 mmhg, SpO2=94.0 %, Resp=20 B/min, Pain=0, Tanisha=10, Sierra=2 11:20:43 Access site was Right Radial Artery . A SHEATH, FR6 RADIAL PRELUDE EASE 11CM FR 6 was advanced into the Radial (right) using the Perc utaneous 11:20:50 technique. 5 mL (Bolus) RADIAL COCKTAIL given in lab by Jorden Batista via Radial. Using [Solution Name]. Ordered by Lester 11:21:04 Jorden. Reason: Ntg 200mcg A JR 5.0 INFINITI CATHETER FR 5 was advanced over a wire. OMNIPAQUE, 350 MG, 150ML 150ML was us ed for 11:21:56 injections. 11:23:01 The RCA was injected and visualized at various angles. OMNIPAQUE, 350 MG, 150ML 150ML used . Recorded Pressure: Ao, HR=70, Condition=Condition 1 11:23:24 (Aorta) Ao 116/68/88 After removing the current catheter a JL 3.5 INFINITI CATHETER FR 5 was advanced over a WIRE, E XCHANGE 260CM 11:24:10 3MMJ 260CM. 11:24:59 HR=66 bpm, RPIR=277/57 mmhg, SpO2=95 %, Resp=17 B/min, Pain=0, Tanisha=10, Sierra=2 11:25:37 The LCA was injected and visualized at various angles. OMNIPAQUE, 350 MG, 150ML 150ML used . After removing the current catheter a XBLAD 4.0 GUIDE CATHETER FR 6 was advanced over a WIRE, E XCHANGE 11:28:19 260CM 3MMJ 260CM. 11:29:58 HR=64 bpm, IARR=890/72 mmhg, SpO2=93.0 %, Resp=15 B/min, Pain=0, Tanisha=10, Sierra=2 11:30:38 11 mL ANGIOMAX BOLUS given in lab by Harvinder De La Garza RN via Peripheral IV. Ordered by Jorden Batista. 11:31:41 A WIRE, RUNTHROUGH NS FLOPPY .014 180CM 180CM was inserted via Radial (right). 11:32:10 Interventional wire has crossed the lesion A BALLOON, 2.5 X 20MM EUPHORA 20MM was inserted over WIRE, RUNTHROUGH NS FLOPPY .014 180CM 180C M via 11:32:27 the Radial (right). 26 mL/hr ANGIOMAX DRIP given in lab by Harvinder De La Garza RN via Peripheral IV. Pump/Drip Flow = 0 m l/hr using 11:33:02 [Solution Name]. Ordered by Jorden Batista. A BALLOON, 2.5 X 20MM EUPHORA 20MM over a WIRE, RUNTHROUGH NS FLOPPY .014 180CM 180CM in the LA D 11:33:59 Prox was inflated using a 30 BUSHRA INDEFLATOR at 6 bushra for 7 sec. 11:34:57 HR=66 bpm, AYAL=697/77 mmhg, SpO2=95.0 %, Resp=11 B/min, Pain=0, Tanisha=10, Sierra=2 A BALLOON, 2.5 X 20MM EUPHORA 20MM over a WIRE, RUNTHROUGH NS FLOPPY .014 180CM 180CM in the LA D 11:35:12 Prox was inflated using a 30 BUSHRA INDEFLATOR at 10 bushra for 8 sec. 11:35:22 2 mg VERSED given in lab by Harvinder De La Garza RN via Peripheral IV. Ordered by Jorden Batista. 11:35:35 Balloon Removed. A STENT, 3.0 22MM ELISA 3.0 22MM was advanced through a XBLAD 4.0 GUIDE CATHETER FR 6 over a WIR E, 11:36:39 RUNTHROUGH NS FLOPPY .014 180CM 180CM. A STENT, 3.0 22MM ELISA 3.0 22MM was deployed using a 30 BUSHRA INDEFLATOR at 8 atmospheres for 10 seconds in 11:37:08 the LAD Prox. 11:37:31 0.4 mg NITROGLYCERIN S/L given in lab by Harvinder De La Garza RN via Sublingual. Ordered by Jorden Batista. 11:37:47 Delivery device removed 11:38:39 100 mcg NTG (IC) given in lab by Jorden Batista via Intra-coronary. Ordered by Agnieszka Batista 11:40:02 HR=66 bpm, UTQB=230/72 mmhg, SpO2=91 %, Resp=15 B/min, Pain=0, Tanisha=10, Sierra=2 11:40:37 Catheter was removed 11:41:16 Case End (Physician broke scrub) 11:42:51 0.4 mg NITROGLYCERIN S/L given in lab by Harvinder De La Garza, RN via Sublingual. Ordered by Jorden Batista. 11:43:48 Catheter(s) removed without difficulty Radial Compression Device Used. 14 mLs of air placed in BAND, RADIAL COMPRESSION TR SHORT 24 24 CM. Affected 11:43:51 hand 96 % O2 saturation. 11:44:03 No case complications noted. 11:44:05 Cine recording checked. 11:44:07 Bedside Report will be given. 11:44:08 Implantable Device card placed in patient's chart. 11:44:10 A Left Heart Cath was performed. 11:45:07 HR=66 bpm, YNOW=773/66 mmhg, SpO2=92.0 %, Resp=10 B/min Assessment: Final Case, HR=68 BPM, Rhythm=reg, LSGL=471/66 mmhg, Chest Pain=0, Edema=None, [place] [employer] r=Normal, Skin = Warm, Dry Right Pulses: Ronal Ped=3, Femoral=3, Radial=3 11:45:49 Left Pulses: Ronal Ped=3, Femoral=3 Neurological: State=Alert, Ox3, ARCE Respiration: Resp=14 B/min, SpO2=97 % 11:47:28 600 mg PLAVIX given in lab by Harvinder De La Garza, RN via Oral. Ordered by Jorden Batista. 11:50:02 HR=63 bpm, BPDK=444/63 mmhg, SpO2=96.0 %, Resp=14 B/min 11:51:30 Patient moved to stretcher 11:51:32 Vitals capture stopped. End Study - Contrast Media Used In Study Contrast Total Opened (mL) Total Used (mL) Total Wasted (mL) Omnipaque 85 85 0 End Study - Maximum Contrast Load Max Contrast Load (mL) 429.3 End Study - Radiation Exposure Fluoro Time (minutes) 5.0 End Study - Patient Disposition Complications Transferred To Interventional Outcome No Grappler Holding successful
--- NOTE | 2018-05-13 11:56 | P.PCN ---
Date of procedure: 05/13/18 Pre-op diagnosis: Unstable angina Procedure: tufting machine operator: Rodriguez Batista MD Procedures performed: 1. Fluoroscopy with interpretation 2. Coronary angiography 3. Percutaneous coronary intervention and drug-eluting stent to the proximal left anterior descending coronary artery Methods: Risks, benefits, and alternatives were discussed with the patient. Patient understood and consented to the procedure. Patient was brought into the cardiac catheterization lab and placed on the catheterization table. The patient's right wrist was prepped and draped in a sterile fashion. The right wrist was anesthetized with 1% lidocaine. Right wrist was cannulated and a 6 Serbian 11 cm sheath was placed without difficulty. 200 mcg of intra-arterial nitroglycerin was administered and 5000 units of intravenous heparin. Coronary angiography: The left main coronary artery was selectively engaged with a 5 Serbian JL 3.5 Ochoa catheter. The right coronary circulation was selectively engaged with a 5 Serbian JR 5 Ochoa catheter. 1. Left main coronary artery has minor luminal irregularities 2. Left anterior descending coronary artery has a severe proximal stenosis of 99 %. The remainder left anterior descending coronary is tortuous but angiographically normal along with a diagonal branch. 3. Left circumflex coronary artery gives rise to an obtuse marginal branch with minor luminal irregularities 4. Right coronary is a dominant vessel giving rise to the posterior descending branch. The right coronary artery has minor luminal irregularities Conclusions: 1. Severe proximal left anterior descending coronary artery stenosis 2. Successful percutaneous coronary intervention with drug-eluting stent to the proximal left anterior descending coronary artery. Plan: We will continue with guideline directed medical therapy. Sheath was removed and Hemoband applied. We will monitor the patient for any postprocedural complications and hopeful for discharge later today. Initiate on aspirin, Plavix, beta-alda, statin therapy. Follow-up in the outpatient setting.
[2018-05-13 12:12] VITALS: O2SAT 96
--- NOTE | 2018-05-13 15:49 | TR ---
Date Performed: 05/12/2018 Time Performed: 12:47:03 DOCTOR: Lyle Kowalski DRUG LIST: CLINICAL HISTORY: REASON FOR TEST: Angina REASON FOR ENDING: OBSERVATION: CONCLUSION: COMMENTS: Lexiscan stress test was performed under standard four minute protocol. Radionuclide was injected one minute prior to ending the test. No electrocardiographic abormalities were present t o suggest ischemia. Nuclear imaging and interpretation are pending.
--- NOTE | 2018-05-13 17:00 | P.PNIM ---
Subjective Interval history: Pt was admitted to the [facility] on 05/12/18 and has a positive nuclear stress test She underwent C today with Dr. Batista which revealed severe proximal left anterior descending coronary artery stenosis s/p successful PCI with SEGUN to the proximal LAD. Pt has been cleared by Cardiology for discharge this evening. Physical Exam Vital signs: Last Vital Signs Temp 97.2 F L 05/13/18 08:00 Pulse 68 05/13/18 08:00 Resp 16 05/13/18 08:00 BP 176/86 H 05/13/18 08:00 Pulse Ox 96 05/13/18 12:04 Results Labs CBC & Chem 7: 05/11/18 23:15 05/11/18 23:15 Imaging Chest X-Ray 05/11/18 23:06 CONCLUSION: No acute cardiopulmonary abnormality is identified. Myocardial Perfusion Scan Nuc Med 05/12/18 00:00 CONCLUSION: 1. Focal perfusion defect involving the cardiac apex at stress which demonstrates some reversibility at rest indicating LAD infarct with landry- infarct ischemia. Clinical correlation is recommended. Assessment and Plan Assessment (1) CAD (coronary artery disease): Code(s): I25.10 - Atherosclerotic heart disease of [place] coronary artery without angina pectoris Status: Acute (2) Angina pectoris: Code(s): I20.9 - Angina pectoris, unspecified Status: Acute (3) Abnormal nuclear stress test: Code(s): R94.39 - Abnormal result of other cardiovascular function study Status: Acute Plan CAD s/p PCI with SEGUN Angina pectoris - Pt is a 63 y/o female with HTN, hypothyroidism, and transaminitis/fatty liver per her report who presented for to [facility] [place] [place] on 05/12/18 with complaints of chest pain. - Pt was admitted to the [facility] and serial cardiac enzymes and EKGs were negative for ischemia. - She had a nuclear stress test (05/12/18) which was suggestive apical infarct pattern with landry-infarct ischemia, low risk study. - Cardiology was consulted and pt was transferred to Hospitalist service. - Pt underwent LHC on 05/13/18 --> severe proximal left anterior descending coronary artery stenosis s/p successful PCI with SEGUN to the proximal LAD. - Pt to be discharged on Aspirin 81 mg daily, Plavix 75mg daily, Lisinopril 10mg daily, and Imdur 30mg daily along with her Levothyroxine and Temazepam PRN - Beta-alda held due to resting bradycardia. - Pt is to followup with Dr. Batista in 1 week - Pt is to followup with her PCP, Dr. Cruz in 1 week. Progress Note: Quality VTE Deep Vein Thrombosis/Pulmonary Embolism Present on Admission: No
[2018-05-13] MEDS ORDERED: Metoprolol Tartrate 25 MG Tablet PO SCH (21:00)
== END 2018-05-13 18:15 | disposition home or self-care (01) ==
LOC: NEDA 22:15 → NEPC 22:15 → NEPHCDU 05-12 02:30 → HCIS 05-13 10:54
PROVIDERS: ADMIT Hospitalist; ATTEND Hospitalist